=== PATIENT | male | born 1975 ===

== ENCOUNTER 2016-08-18 00:22 | Emergency (ER) ==
[2016-08-18] MEDS ORDERED: ZOFRAN PO ONE (00:48)
[2016-08-18] MEDS ORDERED: ZOFRAN ODT ONE (00:49)
[2016-08-18] MEDS ORDERED: ZOFRAN ONE ×2 (00:52→02:08)
[2016-08-18] MEDS ORDERED: LEVSIN-SL SL ONE (00:53)
[2016-08-18] MEDS ORDERED: NS 1,000 ML ONE (00:53)
[2016-08-18] MEDS ORDERED: NS 1,000 ML IV ONE (00:53)
--- NOTE | 2016-08-18 00:56 | PROVIDER DOCUMENTATION ---
HPI-General Adult - General Source: patient - History of Present Illness -Gen Adult Nature of Presenting Problems: Pt. is 41 yom that presents with c/o abd pain with N/V that began this morning. Patient states his pain is all over and he can't keep anything down. Pt. denies any fever or other symptoms. Location of Pain/Injury: reports: abdomen. denies: head, face, mouth, neck, chest, upper extremity, hand(s), back, pelvis, genitalia, lower extremity, feet , upper body, lower body, generalized Pain Radiation: reports: no radiation Quality of Pain: reports: aching, cramping. denies: burning, dull, fullness, indigestion, pressure, sharp, stabbing, tearing, throbbing, tightness Severity: reports: moderate. denies: mild, severe Onset/Duration: reports: abrupt, this morning Timing: reports: still present. denies: improving, gone now, resolved prior to arrival, intermittent, constant, changing over time, getting worse Context/Activities at Onset: reports: none. denies: recent emotional stress, recent physical stress, recent trauma history, possible bad food, cold exposure , out of country travel Modifying Factors: improves with: nothing Associated Symptoms: reports: nausea, vomiting. denies: anxiety, arm pain, back /neck pain, chest pain, constipation, cough, diaphoresis, diarrhea, dizziness, EENT symptoms, fatigue, fever/chills, genitourinary problems, headaches, heartburn, joint pain, loss of appetite, malaise, muscle aches, sinus congestion /drainage, rash, seizure, shortness of breath, sensory/motor loss, pain with inspiration, swelling/mass in abdomen, syncope, weakness, trouble walking Similar Symptoms Previously?: Yes Recently seen or treated by another doctor?: No <Eliza Almonte - Last Filed: 08/18/16 01:58> - General Source: patient (Patient is a 41 year old black male with history of ulcer disease who ran out of his protonix 1 week ago, now presents with 10/10 upper abdomen pain since this am with associated nausea and vomiting.) <Rafael Salamanca - Last Filed: 08/18/16 02:07> <Bossman Kong - Last Filed: 08/18/16 02:57> - General Chief Complaint: Abdominal Pain Stated Complaint: ABD PAIN Time Seen by Provider: 08/18/16 00:48 Allergies/Adverse Reactions: Patient Allergies Allergy/AdvReac Type Severity Reaction Status Date / Time No Known Allergies Allergy Verified 08/18/16 00:33 Home Medications: Home Medication List Medication Instructions Recorded Confirmed Last Taken Type Pantoprazole [Protonix] 40 mg PO DAILY 07/23/14 07/23/14 1 Week Ago History Review of Systems - Adult - REVIEW OF SYSTEMS - ADULT Constitutional: reports: see HPI. denies: chills, fever, fatique Eyes: reports: see HPI. denies: discharge, blurred vision, double vision, eye pain Ears, Nose, Mouth & Throat: reports: see HPI. denies: ear discharge, ear pain, hearing loss, sinus problem, nose pain, loose teeth, mouth/dental pain, throat pain, throat swelling Cardiovascular: reports: see HPI. denies: chest pain, irregular heart rate, orthopnea, palpitations, syncope Respiratory: reports: see HPI. denies: chronic cough, cough, dyspnea on exertion, pleurisy, shortness of breath, wheezing Gastrointestinal: reports: see HPI, abdominal pain, nausea, vomiting. denies: hematemesis, diarrhea, difficulty swallowing, frequent heartburn, rectal bleeding Genitourinary: reports: see HPI. denies: dysuria, discharge, hematuria, hesitency, urgency Musculoskeletal: reports: see HPI. denies: bone pain, back pain, joint pain, joint swelling, muscle aches, neck pain Integumentary: reports: see HPI. denies: hives, hair loss, itching, rash, skin thickening Neurological: reports: see HPI. denies: ataxia, dizziness/vertigo, headache/ migraines, numbness, paresthesia, seizure, tremors Psychiatric: reports: see HPI. denies: anxiety, depression, emotional problems , insomnia, panic attacks, suicidal thoughts <Eilza Almonte - Last Filed: 08/18/16 01:58> Past History - Adult - PAST MEDICAL HISTORY-ADULT Review of Records: reports: Old Records Reviewed, Nursing Assessment Review, Medications Reviewed, Social history reviewed & non-contributory. Major Childhood Illnesses: reports: denies history Cardiovascular: reports: denies history Respiratory: reports: denies history Gastrointestinal: reports: GERD, ulcer Obstetrical/Gynecological: reports: denies history Genitourinary: reports: denies history Musculoskeletal: reports: denies history Neurological: reports: denies history Psychiatric: reports: denies history Endocrine/Immune: reports: denies history Other Conditions: reports: denies history - PRIOR SURGERIES/PROCEDURES Surgical/Procedure History: reports: none - PRIOR HOSPITALIZATIONS Prior Hospitalizations: reports: for other non-related - IMMUNIZATION STATUS Childhood Immunizations: See Nurse Assessment Flu Vaccine: See Nurse Assessment - FAMILY HISTORY Family History: reviewed, not pertinent - SOCIAL HISTORY Smoking: cigarettes, greater than 1 pack/day Provider spent 3-5 mins advising pt. on dangers of tobacco.: Discussed the need to stop smoking. <Eliza Almonte - Last Filed: 08/18/16 01:58> Physical Exam-General - PHYSICAL EXAM-ADULT Initial Vital Signs Reviewed: Yes - CONSTITUTIONAL General Appearance: alert, moderate distress, thin. negative: obese, anxious, lethargic, slow to respond, obtunded, combative - EYES Eyes: PERRL/EOMI, pink conjunctivae. negative: conjuctival exudate, scleral icterus, subconjunctival hemorrhage - HEAD, EARS, NOSE, MOUTH & THROAT HENMT: normocephalic/atraumatic, moist mucous membranes. negative: angioedema, frontal tenderness, maxillary tenderness - NECK Neck: non-tender, full range of motion, supple, normal inspection. negative: lymphadenopathy, trachial deviation, thyromegaly - RESPIRATORY Respiratory: lungs clear, normal breath sounds. negative: crackles, rales, rhonchi, stridor, wheezing - CARDIOVASCULAR Cardiovascular: normal peripheral pulses, regular rate, rhythm, no edema, no JVD , no murmur. negative: extra beats, friction rub, irregularly irregular - CHEST (BREASTS) Chest/Breast: deferred - GASTROINTESTINAL (ABDOMEN) Abdominal Exam: soft, abnormal bowel sounds (hypoactive), tenderness. negative : distended, guarding, rigid, rebound, hernia, mass - GENITOURINARY Male Genitalia: deferred Rectal Exam: deferred Hemoccult Exam: deferred - LYMPHATIC Lymphatic: no adenopathy. negative: axilla node tender, cervical node tenderness - MUSCULOSKELETAL Back Exam: normal inspection, no CVA tenderness, no vertebral tenderness. negative: ecchymosis, scoliosis, swelling, vertebral tenderness Extremity: normal range of motion, non-tender, normal gait, normal inspection. negative: deformity, erythema, inflammation, swelling, tenderness Peripheral Pulses: radial (R): 2+, radial (L): 2+ - SKIN Integumentary: normal color, normal turgor, warm/dry. negative: cyanosis, diaphoresis, ecchymosis, erythema, jaundice, mottled, pallor, petechiae, purpura , rash, swelling, tenderness - NEUROLOGIC Neurologic: grossly normal, no motor/sensory deficits. negative: aphasia, facial droop, focal weakness, motor weakness, sensory deficit - PSYCHIATRIC Psych/Mental Status: normal mood/affect, normal thought content, normal thought process, oriented x 3. negative: anxious, paranoid, tearful <Eliza Almonte - Last Filed: 08/18/16 01:58> Progress - PLAN OF CARE/RESULTS Progress/Plan/Lab Results: Discussed results and plan of care with patient. Patient agrees with plan and verbalizes understanding. Vital Signs Temp Pulse Resp BP Pulse Ox 08/18/16 00:29 98.6 F 65 16 131/71 99 No Known Allergies Allergy (Verified 08/18/16 00:33) Pantoprazole [Protonix] 40 mg PO DAILY 07/23/14 Dietary Diet NPO Start Sat Aug 18 0035 Laboratory 08/18/16 08/18/16 08/18/16 00:55 00:55 00:45 WBC 7.09 RBC 4.84 Hgb 14.5 Hct 43.2 MCV 89.3 MCH 30.0 MCHC 33.6 RDW Std Deviation 13.2 Plt Count 271 MPV 8.9 Immature Gran % (Auto) 0.3 Neut % (Auto) 55.8 Lymph % (Auto) 31.0 [place] % (Auto) 9.9 H Eos % (Auto) 2.4 Baso % (Auto) 0.6 Immature Gran # (Auto) 0.02 Neut # (Auto) 3.96 Lymph # (Auto) 2.20 [place] # (Auto) 0.70 H Eos # (Auto) 0.17 Baso # (Auto) 0.04 Sodium 140 Potassium 4.0 Chloride 102 Carbon Dioxide 27 Anion Gap 11 BUN 13 Creatinine 1.3 H Estimated GFR/1.73 m2 > 60 BUN/Creatinine Ratio 10 Glucose 93 Calculated Osmolality 279 Calcium 9.7 Total Bilirubin 0.60 AST 24 ALT 27 Alkaline Phosphatase 77 Total Protein 7.6 Albumin 4.4 Globulin 3.0 Albumin/Globulin Ratio 1.0 Amylase 148 Lipase 76 H Urine Source VOIDED Urine Color YELLOW Urine Clarity SL. CLOUDY A Urine pH 8.0 Ur Specific [place] 1.010 Urine Protein NEGATIVE Urine Ketones NEGATIVE Urine Blood 1+ A Urine Nitrite NEGATIVE Urine Bilirubin NEGATIVE Urine Urobilinogen NORMAL Urine Microscopic RBC <10 Urine WBC NEGATIVE Urine Microscopic WBC <10 Ur Epithelial Cells <10 Urine Bacteria NEGATIVE Urine Glucose NEGATIVE Orders Category Date Time Status NPO Diet 08/18/16 00:[address] ABD/PELVIS W/ IV CONT ONLY [CT] Stat Exams 08/18/16 01:36 Ordered AMYLASE [CHEM] Stat Lab 08/18/16 00:55 Completed CBC WITH ELECTRONIC DIFF [HEME] Stat Lab 08/18/16 00:55 Completed COMPREHENSIVE METABOLIC PANEL [CHEM] Stat Lab 08/18/16 00:55 Completed LIPASE [CHEM] Stat Lab 08/18/16 00:[address] W/POSS RFLX CULT [URINALYSIS] Stat Lab 08/18/16 00:45 Completed 0.9% Sodium Chloride Inj [Ns] 1,000 ml Med 08/18/16 00:53 Discontinued .ROUTE As Directed 0.9% Sodium Chloride Inj [Ns] 1,000 ml Med 08/18/16 00:53 Discontinued IV 999 mls/hr Hyoscyamine Subl [Levsin-Sl] Med 08/18/16 00:53 Discontinued 0.125 mg SL NOW ONE Ondansetron Odt [Zofran Odt] Med 08/18/16 00:49 Discontinued 4 mg .ROUTE .STK-MED ONE Ondansetron [Zofran] Med 08/18/16 00:52 Discontinued 4 mg .ROUTE .STK-MED ONE Ondansetron [Zofran] Med 08/18/16 01:01 Discontinued 4 mg IV NOW ONE Ondansetron [Zofran] Med 08/18/16 00:48 Discontinued 4 mg PO NOW ONE Laboratory Tests 08/18/16 08/18/16 08/18/16 00:45 00:55 00:55 WBC 7.09 RBC 4.84 Hgb 14.5 Hct 43.2 MCV 89.3 MCH 30.0 MCHC 33.6 RDW Std Deviation 13.2 Plt Count 271 MPV 8.9 Immature Gran % (Auto) 0.3 Neut % (Auto) 55.8 Lymph % (Auto) 31.0 [place] % (Auto) 9.9 H Eos % (Auto) 2.4 Baso % (Auto) 0.6 Immature Gran # (Auto) 0.02 Neut # (Auto) 3.96 Lymph # (Auto) 2.20 [place] # (Auto) 0.70 H Eos # (Auto) 0.17 Baso # (Auto) 0.04 Sodium 140 Potassium 4.0 Chloride 102 Carbon Dioxide 27 Anion Gap 11 BUN 13 Creatinine 1.3 H Estimated GFR/1.73 m2 > 60 BUN/Creatinine Ratio 10 Glucose 93 Calculated Osmolality 279 Calcium 9.7 Total Bilirubin 0.60 AST 24 ALT 27 Alkaline Phosphatase 77 Total Protein 7.6 Albumin 4.4 Globulin 3.0 Albumin/Globulin Ratio 1.0 Amylase 148 Lipase 76 H Urine Source VOIDED Urine Color YELLOW Urine Clarity SL. CLOUDY A Urine pH 8.0 Ur Specific [place] 1.010 Urine Protein NEGATIVE Urine Ketones NEGATIVE Urine Blood 1+ A Urine Nitrite NEGATIVE Urine Bilirubin NEGATIVE Urine Urobilinogen NORMAL Urine Microscopic RBC <10 Urine WBC NEGATIVE Urine Microscopic WBC <10 Ur Epithelial Cells <10 Urine Bacteria NEGATIVE Urine Glucose NEGATIVE - CHANGE OF SHIFT REPORT (ED Provider) Report Given and Care Transferred to:: Dr. Salamanca Time of Transfer: 01:57 Items Pending: CT/MRI Results Tentative Impression of Patient: Gastroenteritis <Eliza Almonte - Last Filed: 08/18/16 01:58> Departure - Departure Certified Medical Emergency: Emergent <Eliza Almonte - Last Filed: 08/18/16 01:58> <Rafael Salamanca - Last Filed: 08/18/16 02:07> - Departure Time of Disposition Order: 02:56 Certified Medical Emergency: Emergent <Bossman Kong - Last Filed: 08/18/16 02:57> - Departure DIAGNOSIS: Peptic ulcer Nausea & vomiting Qualifiers: Vomiting type: unspecified Vomiting Intractability: non-intractable Qualified Code(s): R11.2 - Nausea with vomiting, unspecified Disposition: HOME 01 Condition: Stable Additional Instructions: ED Follow Up Instructions: You have been treated by a care provider in the Emergency Department. These instructions are being provided to you so you can have an understanding of how to care for yourself upon discharge. Upon discharge from the Emergency Department, you are responsible for making arrangements for follow-up care by a physician of your choice. Take all prescribed medications as directed. Return to the Emergency Department immediately for any new or worsening symptoms. You may call the Physician Referral phone number at [phone] to obtain a list of Physicians who are taking new patients. Referrals: None,PCP [Primary Care Provider] - Frederick Zamorano MD [STAFF PHYSICIAN] - Attestation - Physician/ JULISSA Attestation Patient care was provided by Advanced Practice Provider:: Yes Advanced Practice Provider:: Eliza Almonte Advanced Practice Provider documentation review:: The Mid-level provider documentation, treatment plan and medical decision making was reviewed by the physician who agrees with all treatment and medical decision making by the P. The physician spent face to face time with patient:: Yes <Eliza Almonte - Last Filed: 08/18/16 01:58> Physician Attestation
[2016-08-18 00:59] LABS: MANUAL DIFF NEEDED? NO
[2016-08-18 01:00] LABS: URINE CULTURE PL NEEDED? NO; URINE SOURCE VOIDED
[2016-08-18] MEDS ORDERED: ZOFRAN IV ONE ×2 (01:01→02:05)
[2016-08-18 01:11] LABS: BASO% 0.6 % (0.0-0.8); EOS# 0.17 X1000 (0.0-0.7); EOS% 2.4 % (0.0-10.0); HEMATOCRIT 43.2 % (42.0-52.0); HEMOGLOBIN 14.5 g/dL (14.0-18.0); IMM GRAN# 0.02 X1000 (0.0-0.04); IMM GRAN% 0.3 % (0.0-0.5); MCHC 33.6 g/dL (33-37); MCV 89.3 FL (81-99); MONO% 9.9 % (1.7-9.3); MPV 8.9 FL (7.4-10.4); NEUT% 55.8 % (42.2-75.2); PLT 271 X1000 (130-400); RBC 4.84 XMIL (4.7-6.1)
[2016-08-18 01:11] LABS: BILIRUBIN URINE NEGATIVE (NEGATIVE); BLOOD URINE 1+ (NEGATIVE); CLARITY SL. CLOUDY (CLEAR); COLOR YELLOW; GLUCOSE URINE NEGATIVE (NEGATIVE); LEUKOCYTES URINE NEGATIVE (NEGATIVE); NITRITE URINE NEGATIVE (NEGATIVE); PROTEIN URINE NEGATIVE (NEGATIVE); UROBILINOGEN URINE NORMAL
[2016-08-18 01:12] LABS: URINE EPITHELIAL CELLS <10 /HPF (<10); URINE RBC <10 /HPF (<10); URINE WBC <10 /HPF (<10)
[2016-08-18 01:22] LABS: AGAP 11; ALBUMIN 4.4 g/dL (3.5-5.0); ALKALINE PHOSPHATASE 77 U/L (32-122); AMYLASE 148 U/L (20-200); BUN 13 mg/dL (8-22); CALCIUM 9.7 mg/dL (8.8-10.2); CHLORIDE 102 mmol/L (98-107); COSMO 279; GOT 24 U/L (10-34); GPT 27 U/L (10-44); LIPASE 76 U/L (13-60); SODIUM 140 mmol/L (136-145); TCO2 27 mmol/L (25-35); TOTAL PROTEIN 7.6 g/dL (6.3-8.3)
[2016-08-18] MEDS ORDERED: DILAUDID IV ONE (02:05)
[2016-08-18] MEDS ORDERED: DILAUDID ONE (02:08)
[2016-08-18 03:06] VITALS: BP 99/54
--- NOTE | 2016-08-18 09:46 | Diag Imaging Result Document ---
PROCEDURE NAME: CT ABD/PELVIS W/ IV CONT ONLY - 08/18/2016 CT OF THE ABDOMEN WITH INTRAVENOUS CONTRAST: COMPARISON: There are no previous studies. FINDINGS: There is subsegmental atelectasis in both lung bases. There are small cortical cysts in both kidneys. There may be a 3 mm stone in the lower pole of the left kidney. The spleen is not enlarged. The adrenal glands are within normal limits. There is a lucent lesion in the left hepatic lobe measuring 13 mm in diameter. This is too dense to be a cyst but may be a hemangioma. The pancreas is unremarkable in appearance. There is no evidence of significant adenopathy. The appendix is surgically absent. CT OF THE PELVIS WITH INTRAVENOUS CONTRAST: FINDINGS: There are no abnormal fluid collections. No masses or significant adenopathy is present. The regional skeleton appears to be intact. IMPRESSION: Minimal atelectasis. Probable nonobstructing left nephrolithiasis. Otherwise, no evidence of acute disease.
== END 2016-08-18 03:17 | disposition home or self-care (01) ==
LOC: P.ED 00:22
DX: K27.9 Peptic ulcer, site unspecified, unspecified as acute or chronic, without hemorrhage or perforation (principal); R11.2 Nausea with vomiting, unspecified; R10.9 Unspecified abdominal pain; K21.9 Gastro-esophageal reflux disease without esophagitis; F17.210 Nicotine dependence, cigarettes, uncomplicated; Z71.6 Tobacco abuse counseling; Z79.899 Other long term (current) drug therapy
CPT/HCPCS: 74177; 80053; 81001; 82150; 83690; 85025; J1170; J2405; J7030; Q9967